=== PATIENT | female | born 1945 | race Caucasian/White ===

== ENCOUNTER 2018-09-18 13:43 | Emergency (ER) | payer MEDICARE ==
[~2018-09-18] VITALS: Ht 165.1 cm; Wt 110.5 kg
[2018-09-18 13:46] VITALS: BP 167/68; Ht 165.1 cm; Wt 110.5 kg
[2018-09-18] MEDS ORDERED: NORVASC5 MG PO (13:53)
[2018-09-18] MEDS ORDERED: SINGULAIR10 MG PO (13:54)
[2018-09-18] MEDS ORDERED: SYMBICORT 16010.2 GM INH (13:54)
[2018-09-18] MEDS ORDERED: LEXAPRO20 MG PO (13:54)
[2018-09-18] MEDS ORDERED: PRAVACHOL40 MG PO (13:54)
[2018-09-18] MEDS ORDERED: FLUTICASONE PRO16 GM NASAL (13:55)
[2018-09-18] MEDS ORDERED: BILBERRY100 MG PO (13:56)
[2018-09-18] MEDS ORDERED: NEURONTIN 300300 MG PO (13:56)
[2018-09-18] MEDS ORDERED: ROBAXIN500 MG PO (13:56)
[2018-09-18] MEDS ORDERED: OMEPRAZOLE20 M1 PO (13:57)
[2018-09-18] MEDS ORDERED: TRAZODONE HCL150 MG PO (13:57)
[2018-09-18] MEDS ORDERED: HYDROCODON-ACE1 EAC2 PO (15:09)
== END 2018-09-18 15:20 | disposition home or self-care (01) ==
LOC: D.ER 13:43
DX: S01.81XA Laceration without foreign body of other part of head, initial encounter (principal); I10 Essential (primary) hypertension; W10.1XXA Fall (on)(from) sidewalk curb, initial encounter

== ENCOUNTER 2018-09-27 15:02 | Emergency (ER) | payer MEDICARE ==
[~2018-09-27] VITALS: Ht 165.1 cm; Wt 110.5 kg
[~2018-09-27 15:02] MED LIST: BILBERRY100 MG PO; FLUTICASONE PRO16 GM NASAL; HYDROCODON-ACE1 EAC2 PO; LEXAPRO20 MG PO; NEURONTIN 300300 MG PO; NORVASC5 MG PO; OMEPRAZOLE20 M1 PO; PRAVACHOL40 MG PO; ROBAXIN500 MG PO; SINGULAIR10 MG PO; SYMBICORT 16010.2 GM INH; TRAZODONE HCL150 MG PO
[2018-09-27 15:10] VITALS: Ht 165.1 cm; Wt 110.5 kg
[2018-09-27 15:36] VITALS: BP 181/94
== END 2018-09-27 15:37 | disposition home or self-care (01) ==
LOC: D.ER 15:02
DX: Z48.02 Encounter for removal of sutures (principal); I10 Essential (primary) hypertension